=== PATIENT | female | born 2000 | race Caucasian/White ===

== ENCOUNTER 2018-01-25 16:55 | Emergency (ER) | payer OTHER ==
[2018-01-25] MEDS ORDERED: OXYCODONE/APAP 5/325 TAB PO ONE (17:24)
--- NOTE | 2018-01-25 17:24 | EDPHY ---
H & P Stated Complaint: FELL/CLIMBING GYM/R ELBOW INJ DENIES LOC/NECK PAIN OR OTHERINJ Source: Patient Exam Limitations: No limitations - Personal History LMP (Females 10-55): 22-28 Days Ago Current Tetanus Diphtheria and Acellular Pertussis (TDAP): Yes - Medical/Surgical History Hx Asthma: No Hx Chronic Respiratory Disease: No Hx Diabetes: No Hx Cardiac Disease: No Hx Renal Disease: No Hx Cirrhosis: No Hx Alcoholism: No Hx HIV/AIDS: No Hx Splenectomy or Spleen Trauma: No Other PMH: DENIES - Social History Smoking Status: Never smoked Time Seen by Provider: 01/25/18 17:20 HPI/ROS: HPI: This is a 17-year-old female who presents with Chief Complaint: The FELL/CLIMBING GYM/R ELBOW INJ DENIES LOC/NECK PAIN OR OTHERINJ Location: Right elbow Quality: Injury Duration: Prior to arrival Signs and Symptoms: No bleeding, no radiation, no numbness, no weakness, no tingling, no incontinence, + decreased range of motion, + swelling, + pain, no fever Timing: acute Severity: 03/26 Context: Patient is right-hand dominant, reports that she was scrambling when she lost her footing and fell approximately 10 ft. This was witnessed. She denies LOC/head injury/neck pain/dizziness/nausea/vomiting/amnesia. Rib she reports that she impacted her right upper forearm and right elbow on the rock directly. She felt constant, moderate to severe, nonradiating pain in her right upper forearm and right elbow area. She reports that pain is increased with any range of motion or touching the area. EMS splinted her elbow. Patient denies any abdominal pain, shoulder pain, wrist pain, finger pain. Modifying Factors: Splinted. Comment: ROS: see HPI Constitutional: No fever, no chills, no weight loss Eyes: No blurred vision Respiratory: No shortness of breath, no cough Cardiovascular: No chest pain Gastrointestinal: No nausea, no vomiting no diarrhea Genitourinary: No dysuria Extremities: No myalgias Neurologic: No weakness, no numbness Skin: No rashes Hematologic: No bruising, no bleeding MEDICAL/SURGICAL/SOCIAL HISTORY: Medical history: Generally healthy. Does not take any regular medications. Surgical history: Denies Social history: Student, never smoked. CONSTITUTIONAL: Extremely polite and cooperative teenage white female, awake and alert, no obvious distress HEENT: Atraumatic and normocephalic. NECK: supple, no midline tenderness, flexion 45 degrees, extension 45 degrees, right and left lateral flexion 45 degrees. No meningismus. Cardiovascular: Normal S1/S2, regular rate, regular rhythm, without murmur rub or gallop. PULMONARY/CHEST: Symmetrical and nontender. no crepitus. Clear to auscultation bilaterally. Good air movement. No accessory muscle usage. ABDOMEN: Soft, nondistended, nontender, no ecchymosis. PELVIC: no pain with rocking; bilateral hips flexion 125 degrees, extension 30 degrees, with no pain internal rotation and no pain external rotation. BACK: No midline tenderness, no paraspinous spasm, deep tendon reflexes 2/2, no pain with straight leg raise, No foot drop. Achilles reflexes are equal bilaterally. Able to walk on heels and toes without difficulty. EXTREMITIES: 2/2 pulses, strength 5/5, RIGHT SHOULDER: Arc test abduction to 180, abduction to 45, horizontal flexion 130, horizontal extension to 45, deltoid strength 5/5. No pain with Neer test/Gibson test (impingement). no Tenderness to palpation over AC joint. Right ELBOW: Held in full extension to 180 with reluctance to perform flexion, supination, pronation secondary to pain. Tenderness over the lateral epicondyle noted. With some fullness and swelling over the upper forearm. Patient is able to wiggle all 5 fingers with good light touch sensation DIP/PIP/MCP flexion/extension intact with good light touch sensation. no deformities, no clubbing, no cyanosis or edema. NEUROLOGICAL: no focal neuro deficits. GCS 15. Light touch sensation intact. SKIN: Warm and dry, no erythema. no rash. Good capillary refill. (Madelin Ellington) Constitutional: Initial Vital Signs Temperature (C) 36.6 C 01/25/18 17:00 Heart Rate 78 01/25/18 17:00 Respiratory Rate 18 01/25/18 17:00 Blood Pressure 95/57 L 01/25/18 17:00 O2 Sat (%) 97 01/25/18 17:00 O2 Delivery Mode Room Air O2 (L/minute) 2 Allergies/Adverse Reactions: No Known Allergies Allergy (Unverified 01/25/18 17:00) Home Medications: Medication Instructions Recorded Bcp 01/25/18 Medical Decision Making - Diagnostics Imaging Results: Imaging Impressions Forearm X-Ray 01/25/18 17:24 Impression: Posterior dislocation of the right elbow, with two fracture fragments, probably from the proximal ulnar region. For (Madelin Ellington) Procedures: Procedure: Procedural sedation. Indication: Reduction of right elbow dislocation. A pre-sedation evaluation was completed on the patient just prior to the procedure. Patient is an appropriate candidate for procedural sedation with ASA class 1E. Mallampati class I. Patient assessed as 332. The risks of the sedation were discussed including but not limited to dysrhythmia, need for airway intervention or general anesthesia, disability, ; and verbal consent obtained. A timeout was observed and patient's identity confirmed. The patient was sedated with IV ketamine, 30 mg slow push. The patient was monitored with continuous pulse oximetry, capnography, and engine monitor. There were no complications and no significant hypoxemia. I remained at the bedside for the sedation. The total time I spent in the procedural sedation was 15 min. (Lupis Lazcano) Procedure: Dislocation reduction. The dislocation of the right elbow was reduced using counter traction technique without complications. Post reduction the patient's neurovascular exam is normal. Post reduction x-ray demonstrates reduction of the joint to the anatomic position. The procedure was performed by myself. Procedure: Splint placement. A right long posterior Orthoglass and sling was applied by the Emergency Room structured cabling technician and myself. After application of the splint I returned and re- examined the patient. The splint was adequately immobilizing the joint and distal to the splint the patient's circulation and sensation was intact. (Madelin Ellington) ED Course/Re-evaluation: Patient given Percocet x2 upon arrival and ice pack applied. Splint removed by myself at bedside. xray my read at bedside: Posterior dislocation of the right elbow, with two fracture fragments, probably from the proximal ulnar region. 10 cc percent lidocaine for hematoma block attempted for anesthesia without significant relief Placed on engine monitor an oxygen applied. Ketamine used for conscious sedation per Dr. Lazcano. Elbow dislocation reduced using counter traction technique x1 attempt. Post reduction at bedside shows good anatomic alignment with no fracture. Placed in long-arm posterior Ortho Glass and sling. Orthopedic follow-up. Ring removed with ring cutter after consent from patient/patient's mother. This patient was seen under the supervision of my secondary supervising physician. I evaluated care for this patient independently. Discussed this patient with Dr. Lazcano. (Madelin Ellington) Differential Diagnosis: Differential diagnosis includes but is not limited to radial fracture, ulnar fracture, radial head fracture, capitellum fracture, olecranon fracture, distal humerus fracture. (Madelin Ellington) - Data Points Medications Given: Discontinued Medications Diazepam (Valium) 2.5 mg IVP EDNOW ONE Stop: 01/25/18 17:44 Last Admin: 01/25/18 17:59 Dose: Not Given Sodium Chloride (Ns) 1,000 mls @ 0 mls/hr IV ONCE ONE; Wide Open PRN Reason: Protocol Stop: 01/25/18 17:47 Last Admin: 01/25/18 17:54 Dose: 1,000 mls Ketamine HCl (Ketamine) 40 mg IVP EDNOW ONE Stop: 01/25/18 17:47 Last Admin: 01/25/18 17:53 Dose: 40 mg Oxycodone/Acetaminophen (Percocet 5/325) 2 tab PO EDNOW ONE Stop: 01/25/18 17:25 Last Admin: 01/25/18 17:33 Dose: 2 tab Departure - Departure Disposition: Home, Routine, Self-Care Clinical Impression: Closed posterior dislocation of right elbow Qualifiers: Encounter type: initial encounter Qualified Code(s): S53.124A - Posterior dislocation of right ulnohumeral joint, initial encounter Condition: Good Instructions: Elbow Dislocation (ED), Closed Reduction (ED) Additional Instructions: Keep the splint dry and in place until seen by Orthopedics for follow-up. Wear the sling for comfort. Take Tylenol 650 mg every 4 hours and/or Ibuprofen 600 mg every 8 hours with food as needed for pain. Apply ice for 30 minutes at a time; 2-3 times per day for the next 1-2 days. Follow up with Orthopedics in 5-7 days at which time they will evaluate and recommend with you if conservative management versus further adjuvant therapy is indicated. Referrals: Sheela Haywood MD [Medical Doctor] - As per Instructions
[2018-01-25] MEDS ORDERED: DIAZEPAM 5 MG/ML 1 ML SYR IVP ONE (17:43)
[2018-01-25] MEDS ORDERED: KETAMINE 200 MG/20 ML VIAL ONE (17:45)
[2018-01-25] MEDS ORDERED: KETAMINE 200 MG/20 ML VIAL IVP ONE (17:46)
[2018-01-25] MEDS ORDERED: NS 1,000 ML IV ONE (17:46)
[2018-01-25 18:29] VITALS: BP 128/76
== END 2018-01-25 18:56 | disposition home or self-care (01) ==
PROC: 0RSLXZZ Reposition Right Elbow Joint, External Approach (ICD-10-PCS; principal; 2018-01-25)
DX: S53.124A Posterior dislocation of right ulnohumeral joint, initial encounter (principal); E86.9 Volume depletion, unspecified; W17.89XA Other fall from one level to another, initial encounter; Y99.8 Other external cause status; Y93.39 Activity, other involving climbing, rappelling and jumping off
CPT/HCPCS: A4565